=== PATIENT | female | born 1950 | race Caucasian/White ===

== ENCOUNTER 2018-07-14 17:58 | Emergency (ER) | payer MEDICARE, MEDICAID ==
[~2018-07-14] VITALS: Ht 165.1 cm; Wt 100.0 kg
[2018-07-14 18:26] VITALS: BP 148/56
[2018-07-14] MEDS ORDERED: HYDROcodone/acetaminophen 10/325mg tab PO ONE (18:35)
[2018-07-14] MEDS ORDERED: ketorolac tromethamine 15mg/ml inj. IM ONE (18:35)
[2018-07-14] MEDS ORDERED: GABA-532 PO (18:39)
[2018-07-14] MEDS ORDERED: TRAM50TA2 PO (18:39)
[2018-07-16] MEDS ORDERED: BACL20TA PO (05:08)
[2018-07-16] MEDS ORDERED: SERT25TA5 PO (05:08)
[2018-07-18] MEDS ORDERED: LYR75C PO (13:33)
[2018-07-18] MEDS ORDERED: TAMS0.4C32 PO (13:33)
== END 2018-07-14 18:59 | disposition home or self-care (01) ==
LOC: ER 17:59
DX: M54.32 Sciatica, left side (principal); Z79.899 Other long term (current) drug therapy
CPT/HCPCS: 96372; 99283; J1885

== ENCOUNTER 2018-07-15 04:49 | Inpatient (IN) | payer MEDICARE, MEDICAID | END 2018-07-18 15:10 | LOC: ER 04:49 → ED HOLD 08:13 → ORTHO 4S 14:30 | DX: T40.4X1A Poisoning by other synthetic narcotics, accidental (unintentional), initial encounter (principal); G93.41 Metabolic encephalopathy; T42.6X1A Poisoning by other antiepileptic and sedative-hypnotic drugs, accidental (unintentional), initial encounter; T42.8X1A Poisoning by antiparkinsonism drugs and other central muscle-tone depressants, accidental (unintentional), initial encounter; G35 Multiple sclerosis ==

== ENCOUNTER 2018-09-27 18:45 | Emergency (ER) | payer MEDICARE, MEDICAID ==
[~2018-09-27] VITALS: Ht 167.6 cm; Wt 88.6 kg
[~2018-09-27 18:45] MED LIST: BACL20TA PO; LYR75C PO; SERT25TA5 PO; TAMS0.4C32 PO
[2018-09-27 19:04] VITALS: BP 112/61
--- NOTE | 2018-09-27 21:39 | NUR ---
BLADDER SCANNED PT, PT CURRENTLY HAS [address] GUNDERSON
[2018-09-27] MEDS ORDERED: IBUP-1985 PO (21:48)
[2018-09-27] MEDS: acetaminophen 325mg tablet PO ONE (21:54)
[2018-09-27] MEDS: ketorolac trometh inj. 60 MG/2 ML VIAL IM ONE (21:54)
== END 2018-09-27 22:01 | disposition home or self-care (01) ==
LOC: ER 18:47
DX: G89.29 Other chronic pain (principal); M25.552 Pain in left hip; G35 Multiple sclerosis; Z79.899 Other long term (current) drug therapy
CPT/HCPCS: 96372; 99283; J1885

== ENCOUNTER 2019-01-02 12:46 | Outpatient (CLI) | payer MEDICARE, MEDICAID ==
[~2019-01-02 12:46] MED LIST changes: +IBUP-1985 PO
== END 2019-01-02 23:59 | disposition home or self-care (01) ==
LOC: VAS 12:46
PROVIDERS: ATTEND Student in an Organized Health Care Education/Training Program
DX: R60.0 Localized edema (principal)
CPT/HCPCS: 93971

== ENCOUNTER 2019-01-05 20:24 | Emergency (ER) | payer MEDICARE, MEDICAID ==
[~2019-01-05] VITALS: Ht 167.6 cm; Wt 85.9 kg
[2019-01-05 20:36] VITALS: BP 122/63
== END 2019-01-05 21:46 | disposition home or self-care (01) ==
LOC: ER 20:25
DX: B36.9 Superficial mycosis, unspecified (principal); G35 Multiple sclerosis; Z79.899 Other long term (current) drug therapy
CPT/HCPCS: 99281

== ENCOUNTER 2021-01-10 12:21 | Emergency (ER) | payer MEDICARE, MEDICAID ==
[~2021-01-10] VITALS: Ht 167.6 cm; Wt 90.0 kg
[~2021-01-10 12:21] MED LIST changes: +SERT-432 PO; -SERT25TA5 PO
[2021-01-10 12:40] VITALS: BP 177/77
[2021-01-10] MEDS ORDERED: LIDO20SO16 PO (14:21)
[2021-01-10] MEDS ORDERED: PRED20TA PO (14:21)
[2021-01-10] MEDS ORDERED: PENI250T2 PO (14:21)
== END 2021-01-10 14:29 | disposition home or self-care (01) ==
LOC: ER 12:22
DX: K08.89 Other specified disorders of teeth and supporting structures (principal); Z79.2 Long term (current) use of antibiotics; Z79.899 Other long term (current) drug therapy
CPT/HCPCS: 99283

== ENCOUNTER 2021-02-02 13:50 | Emergency (ER) | payer MEDICARE, MEDICAID ==
[~2021-02-02] VITALS: Ht 167.6 cm; Wt 91.0 kg
[~2021-02-02 13:50] MED LIST changes: +LIDO20SO16 PO
--- NOTE | 2021-02-02 13:54 | NUR ---
ARIC AUGUSTE (DAUGHTER) #[phone]
[2021-02-02] MEDS ORDERED: TIZA2CAP PO (14:20)
[2021-02-02] MEDS ORDERED: morphine 4 MG/ML inj SYRINge IM ONE (14:35)
[2021-02-02] MEDS ORDERED: ondansetron 4mg rapidly disintigrating tab PO ONE (14:35)
[2021-02-02] MEDS ORDERED: TIZA-189 PO (14:42)
[2021-02-02] MEDS ORDERED: PREG75CA75 PO (14:42)
[2021-02-02] MEDS ORDERED: IBUP-1985 PO (14:42)
[2021-02-02] MEDS ORDERED: ACET-1025 PO (15:52)
[2021-02-02 16:29] VITALS: BP 146/72
== END 2021-02-02 16:56 | disposition home or self-care (01) ==
LOC: ER 13:50
DX: M25.551 Pain in right hip (principal); G35 Multiple sclerosis; Z79.899 Other long term (current) drug therapy
CPT/HCPCS: 73502; 96372; 99284; J2270

== ENCOUNTER 2022-08-29 22:22 | Emergency (ER) | payer MEDICARE, MEDICAID ==
[~2022-08-29] VITALS: Ht 167.6 cm; Wt 92.2 kg
[~2022-08-29 22:22] MED LIST changes: -BACL20TA PO; -LIDO20SO16 PO; -LYR75C PO; +PREG75CA75 PO; -TAMS0.4C32 PO; +TIZA-189 PO
[2022-08-29 22:56] VITALS: BP 138/77
[2022-08-29] MEDS ORDERED: amox tr/potassium clavulanate 875/125mg TAB PO ONE (23:20)
[2022-08-29] MEDS ORDERED: AMOX-117 PO (23:26)
== END 2022-08-29 23:38 | disposition home or self-care (01) ==
LOC: ER 22:23
DX: H66.91 Otitis media, unspecified, right ear (principal); Z79.899 Other long term (current) drug therapy; Z79.1 Long term (current) use of non-steroidal anti-inflammatories (NSAID)
CPT/HCPCS: 99283

== ENCOUNTER 2022-10-29 15:44 | Emergency (ER) | payer MEDICARE, MEDICAID ==
[~2022-10-29] VITALS: Ht 167.6 cm; Wt 96.2 kg
[2022-10-29] MEDS ORDERED: DOXY-11 PO (16:41)
[2022-10-29] MEDS ORDERED: TRIA15CR61 TOP (16:41)
[2022-10-29 16:58] VITALS: BP 121/68
--- NOTE | 2022-10-31 15:42 | NUR ---
PT'S DAUGHTER, MERCEDEZ AUGUSTE, CALLED STATING THAT PT WAS SEEN ON 10/29/22 AND GIVEN RX FOR ABX AND KENALOG CREAM WHICH WAS E-TRANSMITTER TO [facility] RX. PER DAUGHTER, [facility] HAD THE ABX BUT NOT THE KENALOG CREAM AND REQUESTED THAT THE KENALOG BE CALLED INTO [facility] [address]. KENALOG 0.5% CREAM, 15 GM TUBE; APPLY TOPICALLY Q12 HRS FOR 30 DAYS, #30 GM WAS CALLED TO [facility] IN [place] REQUESTED.
== END 2022-10-29 16:59 | disposition home or self-care (01) ==
LOC: ER 15:45
DX: R21 Rash and other nonspecific skin eruption (principal)
CPT/HCPCS: 99283

== ENCOUNTER 2023-09-03 19:37 | Emergency (ER) | payer MEDICARE, MEDICAID ==
[~2023-09-03] VITALS: Ht 167.6 cm; Wt 91.0 kg
[~2023-09-03 19:37] MED LIST changes: -PREG75CA75 PO; +PREG75CA76 PO
[2023-09-03 19:49] VITALS: TEMP 98
[2023-09-03] MEDS: HYDROcodone/acetaminophen 5mg/325mg tablet PO ONE (23:48)
[2023-09-04 00:49] LABS: BASOPHILS % (AUTO) 0.7 % (0-1); EOSINOPHILS # (AUTO) 0.1 X10'3 (0-0.9); EOSINOPHILS % (AUTO) 1.9 % (0-6); HEMATOCRIT 39.6 % (35.0-45.0); HEMOGLOBIN 13.1 g/dl (12.0-16.0); LYMPHOCYTES # (AUTO) 2.7 X10'3 (1.1-4.8); LYMPHOCYTES % (AUTO) 46.5 % (21-51); MEAN CORPUSCULAR HEMOGLOBIN 30.4 PG (27.0-31.0); MEAN PLATELET VOLUME 7.7 FL (7.4-10.4); MONOCYTES # (AUTO) 0.5 X10'3 (0-0.9); MONOCYTES % (AUTO) 8.7 % (2-12); NEUTROPHILS # (AUTO) 2.4 X10'3 (1.8-7.7); NEUTROPHILS % (AUTO) 42.2 % (42-75); PLATELET COUNT 219 X10'3 (140-440); RED BLOOD COUNT 4.31 X10'6 (4.20-5.60); RED CELL DISTRIBUTION WIDTH 14.2 % (11.5-14.5); WHITE BLOOD COUNT 5.8 X10'3 (4.5-11.0)
[2023-09-04 00:59] LABS: ALBUMIN 3.5 G/DL (3.4-5.0); ANION GAP 7 (8-16); BLOOD UREA NITROGEN 14 MG/DL (7-18); BUN/CREATININE RATIO 21.2 (10.0-20.0); CALCIUM 8.5 MG/DL (8.5-10.1); CHLORIDE 104 MMOL/L (99-107); CREATININE 0.66 MG/DL (0.40-0.90); GLUCOSE 90 MG/DL (70-104); MAGNESIUM 1.9 MG/DL (1.5-2.4); POTASSIUM 3.8 MMOL/L (3.5-5.1); SODIUM 140 MMOL/L (135-145); TOTAL CARBON DIOXIDE 28.8 MMOL/L (24-32); eCRCL 70 ML/MIN; eGFR 88 ML/MIN
[2023-09-04 01:24] VITALS: BP 127/96; PULSE 61; O2SAT 96
[2023-09-04 01:27] VITALS: RESP 18
[2023-09-04] MEDS ORDERED: HYDR-3965 PO (01:46)
== END 2023-09-04 01:52 | disposition home or self-care (01) ==
LOC: ER 19:37
DX: M79.605 Pain in left leg (principal); Z79.899 Other long term (current) drug therapy
CPT/HCPCS: 36415; 73590; 80048; 83735; 85025; 93971; 99284

== ENCOUNTER 2024-10-19 10:34 | Emergency (ER) | payer MEDICARE, MEDICAID ==
[~2024-10-19] VITALS: Ht 167.6 cm; Wt 86.9 kg
[2024-10-19 10:39] VITALS: TEMP 98.2
--- NOTE | 2024-10-19 11:07 | Physician Documentation ---
History of Present Illness ~ Chief Complaint: Mechanical Fall Stated Complaint: FALL Time Seen by MD: 10:54 Primary Medical Doctor: [facility] HPI 74 Year old female reports falling 3 days ago while she was drawn new laundry. States that she has left-sided rib pain number upstrokes denies any changes in vision denies nausea denies light sensitivity. denies blood thinners Day of Fall: Oct 19, 2024 Tetanus within 5 Years?: Yes Medication Reconciliation Allergies: Coded Allergies: No Known Allergies (Unverified , 08/29/22) Scheduled Pregabalin (Pregabalin), 1 CAP PO BID, (Reported) Scheduled PRN Ibuprofen (Ibuprofen), 1 TAB PO Q8H PRN for pain, (Reported) Sertraline HCl (Sertraline HCl), 1 TABLET PO DAILY PRN for anxiety, (Reported) Tizanidine Hcl (Zanaflex), 1 TAB PO Q8H PRN for muscle spasms, (Reported) Past Medical History Past Medical History: Multiple Sclerosis, Psoriasis Past Surgical History: noncontributory Alcohol Use: Other Drug Use: none Lives with: Family Lives In: Home Review of Systems All Other Systems at this time: Reviewed and Negative ROS As stated above in the HPI, otherwise all systems are reviewed and negative. Physical Exam Vital Signs: Temperature: 98.2, Source: Oral, Heart Rate: 71, Respiratory Rate: 16, BP: 160/54, Pulse Oximetry: 94, Weight: 86.900 Oxygen Flow Rate: 0 Physical Exam General: Alert, no apparent distress. Respiratory: Lungs clear, no respiratory distress. Chest: No accessory muscle use. tender Left rib region Cardiovascular: Regular rate and rhythm, no murmurs. Neurologic: Oriented x4. Psychiatric: Normal mood and affect. Skin: Normal color, warm and dry. No edema, no ecchymosis. Progress Results/Orders Results/Orders Completed Orders - STEPHAN BROOKE NP Ketorolac Trometh 15mg/Ml Vial (Toradol (10/19/24 11:30) Medications Received in ER Medications (Trade) Dose Ordered Sig/Faye Route PRN Reason Start Time Stop Time Status Last Admin Dose Admin (Toradol injection) 15 mg ONCE ONCE IM 10/19/24 11:30 10/19/24 11:31 DC 10/19/24 11:35 15 MG Vital Signs 10/19/24 10/19/24 10:39 11:35 Temp 98.2 Pulse 71 Resp 16 18 B/P (MAP) 160/54 Pulse Ox 94 O2 Flow Rate 0 Medical Decision Making Findings initially suspecting rib fracture or contusion. Treatment for pain and inflammation and have her follow up in outpatient setting. I did not appreciate any rib fractures and her extra Differential Dx:Considerations: Include: Closed head injury, Cardiac injury, Fracture(s), Intraabdominal injury, Pneumothorax, Cerebral contusion, Pulmonary contusion, Spine injury, Tracheal injury, Urological injury, Vascular injury, Abrasion(s), Contusion(s), Foreign body(s), Hematoma(s), Laceration(s), Encephalopathy, Other Departure Disposition: 01 HOME / SELF CARE / HOMELESS Impression: Primary Impression: Fall Additional Impression: Rib pain Condition: Stable Discharge Instructions: Fall Prevention in the Home, Adult, [id number] Referrals: NO PRIMARY CARE PROVIDER (PCP) Education Educated: Patient Educated regarding: diagnosis Signature Scribe Signature: gf Attestation: Scribed for Stephan Brooke Director Of Psychology by Stephan Chavez NP . 10/19/24 11:13 STEPHAN BROOKE NP Oct 19, 2024 11:07
[2024-10-19] MEDS: ketorolac trometh 15mg/ml vial 15 MG/ML ML IM ONE (11:35)
--- NOTE | 2024-10-19 11:53 | RADIOLOGY REPORT ---
CHEST RADIOGRAPH Indication: left rib pain Technique: Single frontal view of the chest was obtained Comparison: None FINDINGS: The cardiac silhouette is unremarkable. The lungs demonstrate no pulmonary airspace consolidation. Th e pulmonary vasculature is unremarkable. There is no pleural effusion.. There is no pneumothorax. IMPRESSION: No pulmonary airspace consolidation.
[2024-10-19 12:35] VITALS: BP 132/74; PULSE 66; RESP 18; O2SAT 98
== END 2024-10-19 12:36 | disposition home or self-care (01) ==
LOC: ER 10:34
DX: R07.81 Pleurodynia (principal); G35 Multiple sclerosis
CPT/HCPCS: 71045; 96372; 99283; J1885